=== PATIENT | male | born 1980 | race Caucasian/White ===

== ENCOUNTER → 2016-10-04 | Outpatient (CLI) | payer OTHER ==
--- NOTE | 2016-10-04 10:48 | Diagnostic Imaging Report ---
PROCEDURE: US abdomen complete. TECHNIQUE: Multiple real-time grayscale images were obtained over the abdomen in various projections. INDICATION: Abdominal pain. FINDINGS: The pancreas is obscured. The liver is hyperechoic, may relate to fatty infiltration. The left lobe is partially obscured. There is no definite focal lesion. The gallbladder demonstrates no stones or wall thickening. The CBD is obscured. The spleen is 12 x 3.7 x 3.6 cm. The visualized portions of the aorta distally are normal in caliber. The IVC is obscured by bowel gas. The right kidney is 10.5 cm and the left kidney is 11.1 cm in length. There is no hydronephrosis or focal lesion in either kidney. No fluid collection or ascites in the abdomen noted. IMPRESSION: Hepatic steatosis. No gallstones or evidence of cholecystitis. Dictated by: Dictated on workstation # [id number]
== END ==
LOC: RAD 08:45
PROVIDERS: ATTEND Nurse Practitioner Family
DX: K76.0 Fatty (change of) liver, not elsewhere classified (principal)
CPT/HCPCS: 76700

== ENCOUNTER → 2016-11-21 | Outpatient (CLI) | payer OTHER ==
[~2016-11-21] MED LIST: CATHETER FLUSH 10 ML SYR IV PRN; IOHEXOL 350 MG/ML 100 ML (OMNIPAQUE 350) VIAL IV ONE; NS 100 ML (IVPB) BAG IV ONE
--- NOTE | 2016-11-21 14:18 | Diagnostic Imaging Report ---
PROCEDURE: CT abdomen and pelvis with and without contrast. TECHNIQUE: Precontrast acquisitions were acquired through the abdomen and pelvis. Multiple contiguous axial images were obtained through the abdomen and pelvis after the administration of intravenous contrast. INDICATION: Elevated liver function studies. COMPARISON: Exam interpreted in correlation with ultrasound from 10/04/2016. No previous for direct comparison. FINDINGS: There is likely mild hepatic steatosis when differing modalities taken into account, unchanged when correlated with previous ultrasound. The gallbladder and bile ducts were unremarkable, and there is no identifiable liver mass. The nonfocal spleen is within normal limits of size. There is normal enhancement of the lumen of the intra- and extra-hepatic portal veins as well as hepatic veins and IVC. There is an area of agustin-fissural focal fatty intensification in the liver centrally, but no of mass effect or findings suggestive of a neoplasm. The patient's pancreas appeared homogeneous in density, enhancement, and morphology. There are no findings of acute pancreatitis. Its duct was nondilated. The extrahepatic biliary ducts are unremarkable with no identifiable stone or dilatation. There is no abdominal or pelvic ascites or free fluid. No fluid collection, abscess, or hematoma. There are no findings of diverticulitis or appendicitis, and no focal inflammatory process. The unobstructed kidneys are normal in size, cortical thickness, and density. The adrenals are negative. The aorta and iliac vessels are patent and nonaneurysmal. There is no mesenteric or retroperitoneal lymphadenopathy. There is no focal inflammatory process. Prostate, seminal vesicles, and urinary bladder had an unremarkable appearance. There was no acute-appearing abnormality. IMPRESSION: Mild heterogeneous fatty infiltration of the liver, not appreciably changed. No biliary dilatation. Normal spleen size. There was no ascites. No obstructive phenomena, inflammatory process, or acute abnormalities. Dictated by: Dictated on workstation # [id number]
== END ==
LOC: RAD 09:57
PROVIDERS: ATTEND Nurse Practitioner Family
DX: R50.9 Fever, unspecified (principal); R79.89 Other specified abnormal findings of blood chemistry; R10.9 Unspecified abdominal pain
CPT/HCPCS: 74178

== ENCOUNTER → 2017-03-20 | Outpatient (CLI) | payer OTHER ==
--- NOTE | 2017-03-20 11:47 | Diagnostic Imaging Report ---
PROCEDURE: US Gallbladder. TECHNIQUE: Multiple real-time grayscale images were obtained over the right upper quadrant in various projections. INDICATION: Abdominal pain. FINDINGS: The area of the pancreas is obscured by bowel gas. Minimal heterogeneity in the echotexture of the liver is seen with no focal mass. The left hepatic lobe is obscured by bowel gas. The liver size is near the upper limits of normal with a craniocaudal diagonal dimension of 18.2 cm. The gallbladder demonstrates no stones, wall thickening, or pericholecystic fluid. The sonographic Mosley sign is reportedly negative. The CBD is obscured by bowel gas. The right kidney is 12 cm in length with no nodular focus or focal lesion. No fluid collection in the upper right abdomen is seen. IMPRESSION: No gallstones or evidence of cholecystitis. Dictated by: Dictated on workstation # [id number]
== END ==
LOC: RAD 09:21
PROVIDERS: ATTEND Nurse Practitioner Family
DX: R10.84 Generalized abdominal pain (principal)
CPT/HCPCS: 76705

== ENCOUNTER → 2017-04-15 | Outpatient (CLI) | payer OTHER ==
[~2017-04-15] MED LIST changes: -IOHEXOL 350 MG/ML 100 ML (OMNIPAQUE 350) VIAL IV ONE; -NS 100 ML (IVPB) BAG IV ONE
--- NOTE | 2017-04-15 12:26 | Diagnostic Imaging Report ---
EXAMINATION: HIDA with EF measurements Indication: Abdominal pain TECHNIQUE: After the intravenous administration of 5.4 mCi of Tc 99m Choletec, imaging over the abdomen was obtained. This was followed by administration of Ensure orally to stimulate intrinsic CCK secretion, followed by continued imaging with ejection fraction measured. FINDINGS: There is homogeneous uptake in the liver with prompt bile duct and gallbladder filling seen. Bowel activity is seen at 70 minutes. Based on further imaging and gallbladder area of interest activity measurements after the administration of Ensure, the gallbladder ejection fraction is estimated at above 90%. IMPRESSION: 1. Normal hepatobiliary uptake and Gallbladder filling. 2. Normal gallbladder ejection fraction. Dictated by: Dictated on workstation # [id number]
== END ==
LOC: RAD 09:49
PROVIDERS: ATTEND Nurse Practitioner Family
DX: R10.11 Right upper quadrant pain (principal)
CPT/HCPCS: 78227

== ENCOUNTER → 2017-07-10 | Outpatient (CLI) | payer OTHER ==
--- NOTE | 2017-07-10 12:26 | Diagnostic Imaging Report ---
PROCEDURE: MRI lumbar spine. TECHNIQUE: Multiplanar, multisequence MRI of the lumbar spine was performed without contrast. INDICATION: Back pain. FINDINGS: There is slightly prominent disc between S1 and S2 levels seen. The alignment of the posterior spinal line is satisfactory. The vertebral body heights are preserved. Disc heights are also preserved. There is mild disc desiccation at L5/S1. There is no suspicious marrow signal abnormality. The cauda equina and conus medullaris appear grossly unremarkable. T12/L1: There is no disc herniation, there is mild to moderate facet hypertrophy. No central canal or lateral recess stenosis. No foraminal stenosis. L1/2: There is a diffuse disc bulge with an annular tear in the left paracentral region. There is mild narrowing of the AP dimension of the spinal canal along the left paracentral region without significant canal stenosis or cord compression. The lateral recess and the foramina are patent. L2/3: There is no disc herniation. There is moderate facet hypertrophy. No central canal, lateral recess or foraminal stenosis however. At L3/4: There is no disc herniation. There is bilateral moderate facet hypertrophy. No central canal or lateral recess stenosis. There is no foraminal narrowing. L4/L5: There is an asymmetric disc bulge to the right side. No central canal stenosis. There is mild right lateral recess stenosis. No left lateral recess stenosis. The foramina are patent. L5/S1: There is a mild diffuse disc bulge with superimposed right paracentral extrusion that has a mild caudally migrated component. There is mild to moderate facet and ligamentous flavum hypertrophy. No central canal stenosis. There is minimal right lateral recess stenosis. The left lateral recess is patent. The foramina demonstrate mild to moderate stenosis of the medial aspect of the right foramen and mild stenosis on the left. IMPRESSION: There is overall mild facet and disc degenerative changes with no high-grade spinal canal stenosis at any level. Dictated by: Dictated on workstation # [id number]
== END ==
LOC: RAD 10:31
PROVIDERS: ATTEND Nurse Practitioner Family
DX: M51.26 Other intervertebral disc displacement, lumbar region (principal)
CPT/HCPCS: 72148

== ENCOUNTER → 2017-10-24 | Outpatient (CLI) | payer OTHER ==
[~2017-10-24] MED LIST changes: -CATHETER FLUSH 10 ML SYR IV PRN; +GADOBUTROL 15 MMOL/15 ML (GADAVIST) VIAL IV ONE
--- NOTE | 2017-10-24 17:16 | Diagnostic Imaging Report ---
INDICATION: Chronic upper back pain. EXAMINATION: MRI thoracic spine without contrast. TECHNIQUE: Multiplanar, multisequence imaging of the thoracic spine was done without contrast. FINDINGS: Vertebral body heights and alignment appear normal. The vertebral bodies have normal signal characteristics. There are no intrinsic cord abnormalities. There is no spinal stenosis. There are no paravertebral soft tissue masses. IMPRESSION: Negative MRI thoracic spine. Dictated by: Dictated on workstation # [id number]
--- NOTE | 2017-10-24 18:04 | Diagnostic Imaging Report ---
INDICATION: Visual disturbance and retrobulbar pressure. TECHNIQUE: Multiplanar pre- and post-contrast MR imaging of the brain is performed. Dynamic contrast-enhanced images are also obtained through the pituitary gland. COMPARISON: No previous study is available at this time for comparison. FINDINGS: Ventricles and sulci are within normal limits for size. There is no restricted diffusion to indicate an infarct. There is no abnormal mass effect or shift of midline structures. There is mild caudal extension of cerebellar tonsils through foramen magnum, which is less than 0.5 cm. No hemorrhage is detected. The globes and orbits reveal no abnormality. There is no abnormal contrast enhancement in the brain or within the pituitary gland. There is no evidence of pituitary gland enlargement or suprasellar lesion. IMPRESSION: Unremarkable MRI of the brain and pituitary gland. No orbital abnormality is identified. There is very mild mural thickening noted within left maxillary sinus. Dictated by: Dictated on workstation # [id number]
== END ==
LOC: RAD 15:56
PROVIDERS: ATTEND Nurse Practitioner Family
DX: M54.14 Radiculopathy, thoracic region (principal); R51 Headache; H53.9 Unspecified visual disturbance; J34.89 Other specified disorders of nose and nasal sinuses
CPT/HCPCS: 70553; 72146

== ENCOUNTER → 2018-10-20 | Outpatient (CLI) | payer OTHER ==
--- NOTE | 2018-10-20 14:11 | Diagnostic Imaging Report ---
PROCEDURE: CT cervical spine without contrast. TECHNIQUE: Multiple contiguous axial images were obtained through the cervical spine without the use of intravenous contrast. Sagittal and coronal reformations were then performed. INDICATION: Neck pain with decreased range of motion and pain extending into the shoulder blades. COMPARISON: No prior studies are available for comparison. FINDINGS: Curvature and alignment is normal. No fracture or subluxation is seen. The bony spinal canal appears to be widely patent. Visualized neural foramina appear patent. Prevertebral tissues are within normal limits. The odontoid is intact. IMPRESSION: No acute bony abnormality is seen. Further evaluation with MRI may be useful, if clinically indicated. Dictated by: Dictated on workstation # [id number]
--- NOTE | 2018-10-20 14:11 | Diagnostic Imaging Report ---
PROCEDURE: CT lumbar spine without contrast. TECHNIQUE: Multiple contiguous axial images were obtained through the lumbar spine without the use of intravenous contrast. Sagittal and coronal reformations were then performed. INDICATION: Low back pain. Curvature and alignment of the lumbar spine is normal. Vertebral body heights are maintained. No acute compression fracture is identified. Disc spaces are fairly well-maintained. The bony spinal canal is patent. Paraspinous tissues are unremarkable. IMPRESSION: No acute bony abnormality is detected. Dictated by: Dictated on workstation # [id number]
== END ==
LOC: RAD 13:18
PROVIDERS: ATTEND Nurse Practitioner Family
DX: M54.12 Radiculopathy, cervical region (principal)
CPT/HCPCS: 72125; 72131

== ENCOUNTER → 2022-04-05 | Outpatient (CLI) | payer BC, OTHER ==
--- NOTE | 2022-04-05 15:07 | Diagnostic Imaging Report ---
INDICATION: TESTICULAR Pain, left TECHNIQUE: Real-time grayscale sonographic imaging and color vascular evaluation of the scrotum. CORRELATION STUDY: None FINDINGS: RIGHT TESTICLE: 4.0 x 1.8 x 3.2 cm. LEFT TESTICLE: 3.9 x 1.9 x 2.6 cm. The testicles are in normal location and demonstrate homogeneous echotexture. There is vascular flow to the testicles. Very small epididymal head cyst at 3 x 2 x 2 mm. The epididymides are otherwise unremarkable. No significant hydrocele and/or varicoceles. IMPRESSION: 1. Unremarkable scrotal ultrasound examination. Dictated by: Dictated on workstation # [id number]
== END ==
LOC: RAD 14:30
PROVIDERS: ATTEND Nurse Practitioner Family
DX: N50.812 Left testicular pain (principal)
CPT/HCPCS: 76870